=== PATIENT | female | born 1960 | race Caucasian/White ===

== ENCOUNTER 2018-11-12 05:49 | Day surgery (SDC) | payer BC ==
[2018-11-10 09:57] VITALS: BMI 36.6
[2018-11-12] MEDS ORDERED: PROPOFOL 20 ML ONE (07:10)
[2018-11-12] MEDS ORDERED: MIDAZOLAM HCL 2 MG/2 ML SINGLE DOSE VIAL ONE (07:10)
[2018-11-12] MEDS ORDERED: LIDOCAINE HCL 1% PRESERVATIVE FREE - 30ML VIAL ONE (07:15)
[2018-11-12] MEDS ORDERED: BUPIVACAINE HCL/PF 2.5 MG/ML - 30 ML VIAL IJ ONE (07:15)
[2018-11-12] MEDS ORDERED: ceFAZolin SODIUM 1 GM VIAL ONE (08:09)
[2018-11-12] MEDS ORDERED: BUPIVACAINE HCL/PF 0.25% (2.5MG/ML) 10 ML VIAL IJ ONE (08:15)
[2018-11-12] MEDS ORDERED: LIDOCAINE HCL 1%, 10 MG/ML (20ML VIAL) INF ONE (08:15)
[2018-11-12 08:38] VITALS: TEMP 97.9
[2018-11-12 09:07] VITALS: PULSE 68
[2018-11-12 09:17] VITALS: BP 115/68
--- NOTE | 2018-11-12 09:54 | OP ---
DATE OF OPERATION: 11/12/2018 Done at [facility]. SURGEON: Thomas Thomas MD MANAGER MECHANICAL: ROSETTA Cruz PREOPERATIVE DIAGNOSIS: Right carpal tunnel syndrome. POSTOPERATIVE DIAGNOSIS: Right carpal tunnel syndrome. PROCEDURE: Right carpal tunnel release (CPT code 40311). FINDINGS: Thickened transcarpal ligament with impingement upon median nerve. PROCEDURE: Under sterile conditions, the right upper extremity was prepped and draped in a sterile fashion. Incision was made along the longitudinal portion of the carpal tunnel. A longitudinal incision was made along the proximal portion of the palm, following the palm crease. This was taken down to the transcarpal ligament, which was released initially with scalpel and then extended proximally and distally using blunt tenotomy scissors. The median nerve was identified and completely released from impingement by the transcarpal ligament. The wound was then irrigated with copious amounts of irrigation. Skin was closed with 5-0 nylon in single interrupted sutures. The PA listed above was present and assisted at surgery. Their presence was absolutely medically necessary for the completion of the procedure. They helped hold the arthroscope, pass instruments (and implants when indicated) and the procedure could not have been completed without their assistance. THOMAS THOMAS M.D. [id number]
[2018-11-12] MEDS ORDERED: ONDANSETRON 4 MG/2 ML VIAL IVPUSH PRN (10:39)
[2018-11-12] MEDS ORDERED: oxyCODONE HCL 5 MG TABLET PO PRN ×2 (10:39)
[2018-11-12] MEDS ORDERED: LACTATED RINGERS SOLUTION 1,000 ML IV SCH (10:45)
== END 2018-11-12 09:17 | disposition home or self-care (01) ==
LOC: FASU 05:49
PROVIDERS: ATTEND Orthopaedic Surgery
PROC: 01N50ZZ Release Median Nerve, Open Approach (ICD-10-PCS; principal; 2018-11-12 07:30)
DX: G56.01 Carpal tunnel syndrome, right upper limb (principal)